=== PATIENT | female | born 1970 | race Caucasian/White ===

== ENCOUNTER 2022-04-22 09:59 | Emergency (ER) | payer BC, MEDICAID ==
[~2022-04-22] VITALS: Ht 167.6 cm; Wt 78.0 kg
[2022-04-22 10:14] VITALS: BP 144/72
[2022-04-22 10:56] LABS: CLARITY,URINE SLIGHTLY CLOUDY (Clear); GLUCOSE, URINE NEGATIVE (Neg); KETONES,URINE NEGATIVE (Neg); LEUKOCYTE ESTERASE ,URINE NEGATIVE (Neg); NITRITES, URINE NEGATIVE (Neg); OCCULT BLOOD,URINE TRACE-INTACT (Neg); PH,URINE 6.5 (4.8-8.0); PROTEIN,URINE NEGATIVE (Neg); UROBILINOGEN,URINE 0.2 E.U/dL (0.2-1.0)
[2022-04-22 10:57] LABS: COLOR,URINE STRAW (Yellow); UA COLLECTION TYPE CLN CATCH MIDSTREAM
[2022-04-22 11:05] LABS: BACTERIA,URINE FEW /HPF (Neg); RBC,URINE 0-2 /HPF (0-2); SQUAMOUS EPITHELIAL CELL,UR MANY /LPF (FEW); WBC,URINE 0-4 /HPF (0-4)
[2022-04-22] MEDS ORDERED: HYDROcodone/acetaminophen 10/325mg tab PO ONE (12:15)
[2022-04-22] MEDS ORDERED: TRAM50TA2 PO (13:03)
== END 2022-04-22 13:49 | disposition home or self-care (01) ==
LOC: ER 10:00
DX: M54.50 Low back pain, unspecified (principal); R39.89 Other symptoms and signs involving the genitourinary system; R10.11 Right upper quadrant pain; R10.30 Lower abdominal pain, unspecified; G89.29 Other chronic pain; Z85.05 Personal history of malignant neoplasm of liver; Z88.8 Allergy status to other drugs, medicaments and biological substances; Z79.899 Other long term (current) drug therapy
CPT/HCPCS: 81001; 99284